=== PATIENT | male | born 1980 | race Caucasian/White ===

== ENCOUNTER 2020-07-17 11:53 | Day surgery (SDC) | payer BC ==
[~2020-07-17] VITALS: Ht 177.8 cm; Wt 96.4 kg
[~2020-07-17 11:53] MED LIST: LACT1CAP35 PO; MULT1CAP6 PO; OMEG1CAP23 PO
[2020-07-17 12:13] VITALS: BP 150/79
[2020-07-17] MEDS ORDERED: MIDAZOLAM 1 MG/ML, 2ML ONE (12:19)
[2020-07-17] MEDS ORDERED: FENTANYL PF 250 MCG/5ML ONE (12:19)
[2020-07-17] MEDS ORDERED: CHLORHEXIDINE 15 ML UDC MM ONE (12:30)
[2020-07-17] MEDS: LACTATED RINGERS 1,000 ML IV SCH (12:36)
[2020-07-17] MEDS ORDERED: BUPIVACAINE/PF 0.25% ONE (13:29)
[2020-07-17] MEDS ORDERED: EPINEPHRINE 1 MG/ML, 1ML ONE (13:29)
[2020-07-17] MEDS ORDERED: FENTANYL PF 100 MCG/2ML IV PRN (14:00)
[2020-07-17] MEDS ORDERED: MEPERIDINE/PF 25MG/0.5ML IVPush PRN (14:00)
[2020-07-17] MEDS ORDERED: OXYcodone 5 MG/5 ML ORAL.SOL UDC PO PRN (14:00)
[2020-07-17] MEDS ORDERED: hydrALAzine 20 MG/ML, 1ML IV PRN (14:00)
[2020-07-17] MEDS ORDERED: LABETALOL 5MG/ML, 20ML IV PRN (14:00)
[2020-07-17] MEDS ORDERED: HYDROmorphone 1 MG/ML, 1ML INJ IVPush PRN (14:00)
[2020-07-17] MEDS ORDERED: ONDANSETRON 2MG/ML, 2ML IVPush PRN (14:00)
[2020-07-17] MEDS ORDERED: morphine SULFATE 10 MG/ML, 1ML IVPush PRN (14:00)
[2020-07-17] MEDS ORDERED: ACETAMINOPHEN 325 MG TABLET PO PRN (14:00)
[2020-07-17] MEDS ORDERED: GLYCOPYRROLATE 0.2MG/1ML, 5ML ONE (14:11)
[2020-07-17] MEDS ORDERED: PROPOFOL 10 MG/ML, 20ML ONE (14:11)
[2020-07-17] MEDS ORDERED: CEFAZOLIN 1,000 MG ONE (14:11)
[2020-07-17] MEDS ORDERED: NEOSTIGMINE 1 MG/ML, 10ML ONE (14:11)
[2020-07-17] MEDS ORDERED: ROCURONIUM 10MG/ML,5ML ONE (14:11)
[2020-07-17] MEDS ORDERED: OXYC5CAP2 PO (14:30)
== END 2020-07-17 16:00 | disposition home or self-care (01) ==
LOC: OUT 11:53
PROVIDERS: ATTEND Surgery
DX: R22.1 Localized swelling, mass and lump, neck (principal); Z20.822 Contact with and (suspected) exposure to COVID-19; Z79.899 Other long term (current) drug therapy
CPT/HCPCS: 13132; 21552; 88304; J0171; J0690; J2250; J2704; J2710; J3010; J7120; U0003; 88305